=== PATIENT | male | born 1935 | race Caucasian/White ===

== ENCOUNTER → 2022-11-27 09:18 | Outpatient (CLI) | payer MEDICARE, OTHER, SELFPAY ==
[2022-11-27 10:33] LABS: Hematocrit 37.5 % (41-53); Mean Corpuscular HGB Conc 34.7 % (30-36); Mean Corpuscular Hemoglobin 35.3 PG (26-34); Mean Corpuscular Volume 101.7 fL (80-100); Platelet Count 138 X10^3/uL (150-400); Red Blood Cell Count 3.69 X10^6/uL (4.5-5.9); Red Cell Distribution Width 13.5 % (11.6-14.8); White Blood Cell Count 4.7 X10^3/uL (4.5-11.0)
[2022-11-27 11:09] LABS: Alanine Aminotransferase 22 IU/L (<50); Albumin Globulin Ratio 1.3 (1.0-2.8); Alkaline Phosphatase 63 U/L (38-126); Aspartate Aminotransferase 31 IU/L (17-59); BUN Creatinine Ratio 24.4 (6-22); Bilirubin Total 0.6 mg/dL (0.2-1.3); Blood Urea Nitrogen 20 mg/dL (9-20); Calcium 9.1 mg/dL (8.4-10.2); Carbon Dioxide 31 mmol/L (22-32); Chloride 102 mmol/L (98-107); Cholesterol 172 mg/dL (140-199); Estimated Glomerular Filt Rate > 60 mL/min (>60); Glucose 98 mg/dL (80-110); HDL Cholesterol 58 mg/dL (40-60); HEMOLYSIS < 15 (0-50); LDL Cholesterol Calculated 89 mg/dL (<100); Potassium 3.8 mmol/L (3.4-5.1); Sodium 138 mmol/L (137-145); Triglycerides 125 mg/dL (35-150)
[2022-11-27 11:40] LABS: TSH w/ Reflex to FT4 2.48 uIU/mL (0.47-4.68)
== END ==
PROVIDERS: PCP Family Medicine; Referring Provider Family Medicine; Visit Provider Family Medicine
DX: Z00.00 Encounter for general adult medical examination without abnormal findings (principal); E03.9 Hypothyroidism, unspecified; D63.8 Anemia in other chronic diseases classified elsewhere
CPT/HCPCS: 36415; 80053; 80061; 84443; 85027